=== PATIENT | male | born 1950 | race Caucasian/White ===

== ENCOUNTER 2023-07-02 06:49 | Emergency (ER) | payer BC, MEDICARE ==
[2023-07-02] MEDS ORDERED: Fluorescein 1 MG Ophth Strip EYERT ONE (07:14)
[2023-07-02] MEDS ORDERED: Proparacaine 0.5% Ophth Soln 15 ML Bottle EYERT ONE (07:14)
[2023-07-02] MEDS ORDERED: Ciprofloxacin 0.3% Ophth Soln 5 ML Bottle EYERT ONE (07:45)
== END 2023-07-02 07:52 | disposition home or self-care (01) ==
LOC: JD.ED 06:49
DX: T15.01XA Foreign body in cornea, right eye, initial encounter (principal)
CPT/HCPCS: 65220; 99283; A9270; 99282; J3490